=== PATIENT | male | born 1940 | race Caucasian/White ===

== ENCOUNTER 2024-06-15 07:17 | Emergency (ER) | payer MEDICARE, BC, SELFPAY ==
[2024-06-15] VITALS (7 sets, daily range): BP systolic 119–147; BP diastolic 66–100; PULSE 60–71; RESP 14–16; TEMP 36.8; O2SAT 96–99; BMI 25.6
--- NOTE | 2024-06-15 07:43 | CT_ITS ---
STUDY: CTA HEAD AND NECK WITH CONTRAST REASON FOR EXAM: Male, 83 years old. Neuro deficit, acute, stroke suspected RADIATION DOSAGE (If Supplied By Facility): CTDIvol = ( 39.36 ) mGy, DLP = ( 1642.22 ) mGycm TECHNIQUE: CT angiography was performed with a multi-detector CT scanner. Data acquisition was obtained from the skull base through the vertex following intravenous administration of IV 100mL [id number]-370. MIP images were reconstructed from the axial data set. Post-processing of the angiographic images was performed, with multiplanar reformation and 3D reconstruction. Individualized dose optimization techniques were used for this CT. COMPARISON: No relevant priors. FINDINGS: Evidence of previous surgery to the left frontal/temporal region with postoperative encephalomalacia in the left temporal lobe. No scalp hematoma or skull fracture. There are age consistent senescent changes within the brain parenchyma without acute hemorrhage Normal bilateral petrous carotid arteries. Normal right cavernous carotid artery with a normal supraclinoid bifurcation. Normal left cavernous carotid artery with a normal supraclinoid bifurcation. Normal right A1 segments of the anterior cerebral artery. Normal left A1 segments of the anterior cerebral artery. Normal intact anterior communicating artery (ACOM). Normal bilateral A2 segments of the anterior cerebral arteries. Normal right M1 and M2 segments of the middle cerebral arteries, with a normal M1 bifurcation. Normal left M1 and M2 segments of the middle cerebral arteries, with a normal M1 bifurcation. Normal right posterior communicating artery (PCOM). Normal left posterior communicating artery (PCOM). There is a small atretic left vertebral artery with a dominant right vertebral artery. Normal basilar artery with a normal basilar bifurcation. The visualized bilateral superior cerebellar (SCA) arteries are normal. Normal bilateral P1, P2 and visualized P3 segments of the posterior cerebral arteries. There is no demonstrated aneurysm of the the [place]. AORTIC ARCH: Normal visualized aortic arch. Normal origins of the brachiocephalic, left common carotid, and left subclavian arteries. RIGHT CAROTID ARTERIES: Normal right common carotid artery (CCA). There is mild atherosclerotic plaque formation with minimal narrowing of the right carotid bulb. Normal origin of the right internal carotid (ICA) artery without a hemodynamically significant stenosis. Normal visualized cervical portion of the right internal carotid artery. Normal origin of the right external carotid artery (ECA). LEFT CAROTID ARTERIES: Normal left common carotid artery (CCA). There is moderate atherosclerotic plaque formation with moderate narrowing of the carotid bulb. Peripheral atherosclerotic disease in the proximal left ICA with low-density intramural thrombus. There is narrowing of the ICA 1 cm distal to its origin by approximately 80% best seen on axial images 266 through 272, series 4. The stenosis last 4 approximately 6 mm before the left ICA resumes its normal course and caliber.. Normal visualized cervical portion of the left internal carotid artery. Normal origin of the left external carotid artery (ECA). VERTEBRAL ARTERIES: There is enhancement within the bilateral vertebral arteries with a small left vertebral artery, and a dominant right vertebral artery. 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 This is best seen on images described above. No CTA evidence of stenosis in either CCA, or right ICA stenosis No CT evidence of significant stenosis within the intracranial circulation. No vaso-occlusive disease. No demonstrated aneurysm or vascular malformation Age consistent senescent changes within the brain, there is evidence of previous surgery to the left frontal/temporal region with postoperative encephalomalacia in the left temporal lobe No suspicious enhancing lesion within the brain Electronically Signed: Ken Alonso MD at 8:20 EST ,
--- NOTE | 2024-06-15 07:43 | EKG12_ITS ---
Test Reason : Blood Pressure : */* mmHG Vent. Rate : 67 BPM Atrial Rate : 312 BPM P-R Int : * ms QRS Dur : 164 ms QT Int : 518 ms P-R-T Axes : * 270 99 degrees QTcB Int : 547 ms Ventricular-paced rhythm with frequent Premature ventricular complexes with ventricular escape comple xes Abnormal ECG Confirmed by MED OLGUIN, NOEL ([id number]), photographic editor CHRIS WALTON ([id number]) on 06/16/2024 8:14:13 AM Referred By: Confirmed By: NOEL JOVEL MD
[2024-06-15 07:51] LABS: Absolute Lymphocyte Count 1.82 X10^3/uL (0.83-4.51); Absolute Neutrophil Count 5.6 X10^3/uL (2.0-7.7); Basophil# 0.04 X10^3/uL; Basophil% 0.5 % (0-1); Eosinophil# 0.17 X10^3/uL; Hematocrit 44.7 % (40-54); Hemoglobin 14.4 g/dL (13.0-16.5); Lymphocyte # 1.82 X10^3/ul (0.83-4.51); Lymphocyte % 21.4 % (19-41); Mean Corp Hgb Conc 32.2 g/dL (32-36); Mean Corpuscular Hgb 28.5 pg (27.0-32.0); Mean Corpuscular Volume 88.3 fL (80-94); Mean Platelet Vol. 9.9 fl (6.2-12.0); Monocyte# 0.82 X10^3/uL; Monocyte% 9.6 % (0-10); NRBC Flagged by Analyzer 0 % (0-5); Neutrophil # 5.63 X10^3/uL (2.7-7.7); Neutrophil % 66.1 % (47-70); Platelet Count 285 K/mm3 (150-450); RBC Distribution Width CV 15.5 % (11.6-14.6); RBC Distribution Width SD 50.3 fl (35.1-43.9); Red Blood Count 5.06 M/mm3 (4.6-6.2); White Blood Count 8.5 K/mm3 (4.4-11.0)
--- NOTE | 2024-06-15 08:00 | RAD_ITS ---
STUDY: X-RAY CHEST REASON FOR EXAM: Male, 83 years old. Acute mental status change TECHNIQUE: Single AP portable view of the chest. COMPARISON: None. FINDINGS: EKG leads overlie the chest. Satisfactory appearance of a left subclavian pacemaker The lungs are clear and expanded. There is no demonstrated pleural abnormality. Sternal cerclage wires and vascular clips are present from a prior sternotomy and coronary artery bypass graft procedure (CABG). Normal mediastinum and anton. Normal visualized pulmonary arteries. There is atherosclerotic calcification of the aortic arch with tortuosity. There are diffuse degenerative changes of the visualized thoracic spine. There is degenerative osteoarthritis of the bilateral shoulders. There is no demonstrated abnormality of the visualized soft tissue structures of the upper abdomen. RAD/Chest 1 View IMPRESSION: No acute pulmonary process Electronically Signed: Ken Alonso MD at 8:11 EST ,
[2024-06-15 08:14] LABS: Anion Gap 6 (5-15); BUN 18 mg/dL (7-18); BUN/Creat Ratio 11.2 RATIO (10-20); Calcium,Total 9.2 mg/dL (8.5-10.1); Chloride 104 mmol/L (98-107); EST Glomerular Filtration Rate 44 mL/min (>60); Est Glom Filt Rate - Afr Amer 53 mL/min (>60); Glucose 139 mg/dL (74-106); Potassium 3.6 mmol/L (3.5-5.1); Sodium Level 138 mmol/L (136-145); Troponin-I HS 20 pg/mL (3.0-78.0)
[2024-06-15 08:48] LABS: International Normalized Ratio 1.2; Prothrombin Time (Protime)PT. 14.9 SECONDS (11.7-14.9)
[2024-06-15 08:50] LABS: Partial Thromboplast Time 29.7 Seconds (24.1-36.2)
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
--- NOTE | 2024-06-15 10:00 | ED.RN ---
pt does not want to saty family is agreeable to take him home. states he doesnt want any more testing or treatments. i think we are headed toward pallative care. social work to see pt and to test urine prior to leaving
[2024-06-15 10:27] LABS: Bacteria 0 SEEN /hpf (None Seen); Mucous, Urine 0 SEEN /hpf (<or=2+); Red Blood Cells-Urine 0 SEEN /hpf (0-5); Squamous Epithelial Cells - UA 0 SEEN /hpf (0-5); White Blood Cells 0 SEEN /hpf (0-5)
[2024-06-15 10:29] LABS: Color, Urine Yellow (Yellow); Glucose, Dipstick Normal (Normal); Ketone-Dipstick Negative (Negative); Leukocyte Esterase-Dipstick Negative /ul (Negative); Nitrite-Dipstick Negative (Negative); Occult Blood-Urine 25 /ul (Negative); Protein-Dipstick 15 mg/dl (Negative); Specific Gravity, Urine 1.005 (1.002-1.030); Urine Bilirubin Dipstick Negative (Negative); Urine Clarity Clear (Clear); Urine Urobilinogen Normal (Normal)
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
== END 2024-06-15 10:49 | disposition left against medical advice (07) ==
PROVIDERS: Emergency Provider Emergency Medicine; PCP Family Medicine; Visit Provider Emergency Medicine
DX: R41.82 Altered mental status, unspecified (principal); I50.9 Heart failure, unspecified; N18.32 Chronic kidney disease, stage 3b; R53.1 Weakness; Z87.891 Personal history of nicotine dependence; E78.2 Mixed hyperlipidemia; R73.9 Hyperglycemia, unspecified; I65.22 Occlusion and stenosis of left carotid artery; Z95.0 Presence of cardiac pacemaker; Z87.820 Personal history of traumatic brain injury
CPT/HCPCS: 70496; 70498; 71045; 80048; 81001; 84484; 85025; 85610; 85730; 93005; 99285; Q9967; A4216